=== PATIENT | male | born 1945 | race Caucasian/White ===

== ENCOUNTER 2017-08-15 12:01 | Emergency (ER) | payer MEDICARE, OTHER ==
[2017-08-15 12:45] LABS: ADD MAN DIFF? NO
[2017-08-15 12:53] LABS: BASOPHIL # 0.1 10^3/ul (0.0-0.1); BASOPHILS % 0.9 % (0.0-2.0); EOSINOPHILS # 0.1 10^3/ul (0.0-0.5); EOSINOPHILS % 1.9 % (0.0-7.0); HEMATOCRIT 42.4 % (42.0-52.0); LYMPHOCYTES # 1.2 10^3/ul (0.8-2.9); LYMPHOCYTES % 17.2 % (15.0-51.0); MEAN CORPUSCULAR HEMOGLOBIN 28.1 pg (29.0-33.0); MEAN PLATELET VOLUME 11.4 fl (7.4-10.4); MONOCYTE # 0.5 10^3/ul (0.3-0.9); NEUTROPHILS % 71.8 % (39.0-77.0); PLATELET COUNT 214 10^3/UL (140-415); RED BLOOD COUNT 4.99 10^6/ul (4.70-6.10); RED CELL DISTRIBUTION WIDTH 13.9 % (11.5-14.5)
[2017-08-15 12:53] LABS: WHITE BLOOD COUNT 6.9 10^3/ul (4.8-10.8)
[2017-08-15 13:15] LABS: ANION GAP 14 (8-16); BLOOD UREA NITROGEN 20 mg/dl (7-20); CALCIUM 9.7 mg/dl (8.4-10.2); CARBON DIOXIDE 29 mmol/L (21-31); CHLORIDE 104 mmol/L (97-110); CREATININE 0.98 mg/dl (0.61-1.24); GLUCOSE 105 mg/dl (70-220); POTASSIUM 3.3 mmol/L (3.5-5.1); SODIUM 144 mmol/L (135-144)
[2017-08-15 13:22] LABS: TROPONIN-I 0.023 ng/ml (0.000-0.120)
[2017-08-15 13:29] LABS: INR 0.94; PARTIAL THROMBOPLASTIN TIME 35.8 Sec (25.0-35.0); PROTIME 12.7 Sec (11.9-14.9)
[2017-08-15] MEDS: KETOROLAC 15 MG INJ IV (14:23)
== END 2017-08-15 14:40 | disposition home or self-care (01) ==
LOC: E/R 12:01
DX: E87.6 Hypokalemia (principal); R07.89 Other chest pain; I10 Essential (primary) hypertension; J44.9 Chronic obstructive pulmonary disease, unspecified; E03.9 Hypothyroidism, unspecified; Z85.46 Personal history of malignant neoplasm of prostate; Z87.891 Personal history of nicotine dependence
CPT/HCPCS: 36415; 71045; 80048; 84484; 85025; 85610; 85730; 93005; 96374; 99285-25

== ENCOUNTER 2018-05-18 20:41 | Inpatient (IN) | payer MEDICARE, OTHER ==
[2018-05-18 21:01] LABS: ADD MAN DIFF? NO
[2018-05-18] MEDS: hydrALAzine 20 MG INJ IV ×2 (21:01→22:33)
[2018-05-18 21:05] LABS: WHITE BLOOD COUNT 6.7 10^3/ul (4.8-10.8)
[2018-05-18 21:05] LABS: BASOPHILS % 0.3 % (0.0-2.0); EOSINOPHILS # 0.1 10^3/ul (0.0-0.5); EOSINOPHILS % 1.8 % (0.0-7.0); HEMATOCRIT 41.5 % (42.0-52.0); HEMOGLOBIN 13.4 g/dl (14.0-18.0); LYMPHOCYTES # 1.1 10^3/ul (0.8-2.9); LYMPHOCYTES % 16.8 % (15.0-51.0); MEAN CORPUSCULAR HEMOGLOBIN 28.2 pg (29.0-33.0); MEAN CORPUSCULAR HGB CONC 32.3 g/dl (32.0-37.0); MEAN CORPUSCULAR VOLUME 87.2 fl (82.0-101.0); MEAN PLATELET VOLUME 10.8 fl (7.4-10.4); MONOCYTE # 0.5 10^3/ul (0.3-0.9); MONOCYTES % 8.1 % (0.0-11.0); NEUTROPHIL # 4.8 10^3/ul (1.6-7.5); NEUTROPHILS % 71.7 % (39.0-77.0); PLATELET COUNT 226 10^3/UL (140-415); RED BLOOD COUNT 4.76 10^6/ul (4.70-6.10); RED CELL DISTRIBUTION WIDTH 13.9 % (11.5-14.5)
[2018-05-18 21:25] LABS: ANION GAP 11 (5-13); BLOOD UREA NITROGEN 19 mg/dl (7-20); CALCIUM 10.1 mg/dl (8.4-10.2); CARBON DIOXIDE 30 mmol/L (21-31); CHLORIDE 101 mmol/L (97-110); GLUCOSE 107 mg/dl (70-220); POTASSIUM 3.6 mmol/L (3.5-5.1); SODIUM 142 mmol/L (135-144)
[2018-05-18 21:26] LABS: INR 0.97
[2018-05-18 21:27] LABS: PARTIAL THROMBOPLASTIN TIME 39.2 Sec (23.0-35.0)
[2018-05-18] MEDS ORDERED: ACETAMINOPHEN 325 MG TAB PO (23:00)
[2018-05-18] MEDS ORDERED: ONDANSETRON 4 MG INJ IV (23:00)
[2018-05-19] MEDS: METOPROLOL 50 MG TAB PO ×2 (01:00→08:29)
[2018-05-19] MEDS ORDERED: ALBUTEROL HFA 8 GM INHALER INH (01:00)
[2018-05-19] MEDS ORDERED: HYDROCODONE/APAP (10/325) TAB PO (01:00)
[2018-05-19] MEDS ORDERED: NACL 0.9% 3 ML SYG IV (01:00)
[2018-05-19] MEDS ORDERED: ONDANSETRON 4 MG TAB PO (01:00)
[2018-05-19] MEDS ORDERED: ACETAMINOPHEN 325 MG TAB PO (01:00)
[2018-05-19] MEDS ORDERED: METOCLOPRAMIDE 10 MG INJ IV (01:00)
[2018-05-19] MEDS: BENAZEPRIL 20 MG TAB PO ×2 (01:25→08:29)
[2018-05-19] MEDS: ALFUZOSIN (SR) 10 MG TAB PO (02:34)
[2018-05-19] MEDS: AMLODIPINE 10 MG TAB PO (05:18)
[2018-05-19 06:02] LABS: ADD MAN DIFF? NO
[2018-05-19 06:05] LABS: WHITE BLOOD COUNT 6.5 10^3/ul (4.8-10.8)
[2018-05-19 06:05] LABS: BASOPHILS % 0.5 % (0.0-2.0); EOSINOPHILS # 0.1 10^3/ul (0.0-0.5); EOSINOPHILS % 1.5 % (0.0-7.0); HEMATOCRIT 40.1 % (42.0-52.0); HEMOGLOBIN 13.2 g/dl (14.0-18.0); LYMPHOCYTES # 0.9 10^3/ul (0.8-2.9); MEAN CORPUSCULAR HEMOGLOBIN 28.8 pg (29.0-33.0); MEAN CORPUSCULAR HGB CONC 32.9 g/dl (32.0-37.0); MEAN CORPUSCULAR VOLUME 87.4 fl (82.0-101.0); MEAN PLATELET VOLUME 10.8 fl (7.4-10.4); MONOCYTE # 0.5 10^3/ul (0.3-0.9); MONOCYTES % 7.8 % (0.0-11.0); NEUTROPHIL # 4.9 10^3/ul (1.6-7.5); NEUTROPHILS % 75.1 % (39.0-77.0); PLATELET COUNT 208 10^3/UL (140-415); RED BLOOD COUNT 4.59 10^6/ul (4.70-6.10); RED CELL DISTRIBUTION WIDTH 13.7 % (11.5-14.5)
[2018-05-19 06:29] LABS: ANION GAP 10 (5-13); BLOOD UREA NITROGEN 16 mg/dl (7-20); CALCIUM 9.8 mg/dl (8.4-10.2); CARBON DIOXIDE 25 mmol/L (21-31); CHLORIDE 106 mmol/L (97-110); CREATININE 0.84 mg/dl (0.61-1.24); GLUCOSE 106 mg/dl (70-220); POTASSIUM 3.3 mmol/L (3.5-5.1); SODIUM 141 mmol/L (135-144)
[2018-05-19] MEDS: FLUTICASONE/VILANTEROL 100-25 INH ×2 (08:28→08:58)
[2018-05-19] MEDS: ALLOPURINOL 100 MG TAB PO (08:29)
[2018-05-19] MEDS: MECLIZINE 12.5 MG TAB PO ×2 (08:29→13:11)
[2018-05-19] MEDS: ESCITALOPRAM 10 MG TAB PO ×2 (08:30→08:36)
[2018-05-19] MEDS: HEPARIN 5,000 UNIT/1 ML VIAL SC (08:31)
[2018-05-19] MEDS: POTASSIUM CHLORIDE (SR) 20 MEQ TAB PO (13:11)
[2018-05-19] MEDS ORDERED: ALFUZOSIN (SR) 10 MG TAB PO (21:00)
[2018-05-20] MEDS ORDERED: LOSARTAN 50 MG TAB PO (09:00)
[2018-05-20] MEDS ORDERED: BENAZEPRIL 20 MG TAB PO (09:00)
== END 2018-05-19 13:21 | disposition home or self-care (01) | DRG 305 ==
LOC: MS3 22:40 → E/R 20:41
DX: I16.0 Hypertensive urgency (principal); I10 Essential (primary) hypertension; J44.9 Chronic obstructive pulmonary disease, unspecified; Z85.46 Personal history of malignant neoplasm of prostate
CPT/HCPCS: 36415; 70450; 80048; 85025; 85610; 85730; 93880; 96374; 96376; 99291-25